=== PATIENT | female | born 1955 | race Caucasian/White ===

== ENCOUNTER 2020-01-16 15:03 | Observation (INO) | payer OTHER ==
[2020-01-16] MEDS ORDERED: Acetaminophen 325 MG TAB PO PRN (16:36)
[2020-01-16] MEDS ORDERED: Acetaminophen 650 MG Suppository PR PRN (16:36)
[2020-01-16] MEDS ORDERED: Nitroglycerin 0.4 MG TAB (25 Tab Bottle) SL PRN (16:38)
[2020-01-16 18:05] VITALS: BMI 27.1
[2020-01-16] MEDS: Famotidine 20 MG TAB PO SCH (20:26)
[2020-01-17 05:08] LABS: #Basophils 0.1 thou/uL (0.0-0.2); #Eosinphils 0.1 thou/uL (0.0-0.7); #Monocytes 0.4 thou/uL (0.11-0.59); #Neutrophils 3.9 thou/uL (1.40-6.50); %Eosinophils 2.3 % (0.0-10.0); %Lymphocytes 31.2 % (21.0-51.0); %Neutrophils 59.5 % (42.0-75.0); Hemoglobin 14.9 g/dL (12.0-16.0); Mean Corpuscular HGB CONC 35.4 g/dL (32.0-36.0); Mean Corpuscular Hemoglobin 34.3 pg (27.0-31.0); Mean Corpuscular Volume 96.8 fL (78.0-98.0); Mean Platelet Volume 8.1 fL (7.4-10.4); Platelet Count 225 thou/uL (130-400); RBC Distribution Width 11.3 % (11.5-14.5); Red Blood Cell (RBC) Count 4.35 mill/uL (4.20-5.40); White Blood Cell (WBC) Count 6.5 thou/uL (4.8-10.8)
[2020-01-17 05:26] LABS: Anion Gap 13 mmol/L (10-20); BUN (Urea Nitrogen) 14 mg/dL (9.8-20.1); Calc. Creatinine Clearance 101 mL/min (70-130); Calcium 8.4 mg/dL (7.8-10.44); Carbon Dioxide 21 mmol/L (23-31); Chloride 106 mmol/L (98-107); Estimated GFR-MDRD Greater than 90; Glucose 98 mg/dL (80-115); Potassium 3.7 mmol/L (3.5-5.1); Sodium 136 mmol/L (136-145)
[2020-01-17] MEDS ORDERED: ESTRADIOL 0.05 MG I-DERMAL SCH (07:30)
[2020-01-17] MEDS ORDERED: Aspirin 81 mg Enteric Coated Tablet PO SCH (09:00)
--- NOTE | 2020-01-17 11:11 | PDOC.HHP ---
Hospitalist HPI - History of Present Illness Chest pain History of Present Illness: Ms. Doherty presents complaining of pain in her chest that started shortly after she was working outside with her . She states the pain came on both sides of her ribcage, more prominent on the left, and wrapped around towards the center of her chest. She best describes it as a band-like pain/sensation that was severe 9/10 lasting approximately 15 minutes. States she has felt pain like this almost two weeks ago which was not as intense. Denies any associated breathlessness. States the pain eased on its own and fully subsided shortly after. Denies any radiating pain to her neck, jaw, shoulders, but states she has chronic left shoulder pain that remain unchanged. She is waiting for a left shoulder surgery. Her expresses concern over her having the flu shot on Saturday and states she has been feeling "not right" since then but unable to pin point symptoms. She denies any fevers, chills, sweats. No cough. Thinks she may have felt some generalized muscle or joint aches. He states she looked like she might pass out. Patient denies any lightheadedness or dizziness. They both called a friend who is a medical provider and advised them to come to the ED to have further assessment/workup. ROS: She denies any cough or hemoptysis. No calf tendernes or swelling. No trauma or injury to her chest. No falls. No n/v or abdominal pain. No urinary symptoms. She has a good appetite. No changes with her bowels. All other review of systems apart from those mentioned above in HPI are negative. ED COURSE: She was first seen at [place] [facility] where she was given 162 mg of Aspirin since she had taken 2 baby aspirin at home. She had an EKG done that showed sinus tachycardia, HR of 112. No ST changes or T wave abnormalities. Given 162 mg of Aspirin. CXR done and unremarkable. D-dimer was negative and initial troponin negative as well PAST MEDICAL HISTORY: Hypothyroidism. Left chronic shoulder pain. PAST SURGICAL HISTORY: x 2 Tonsillectomy. FAMILY HISTORY: Her brother had an SC in his 40s. SOCIAL HISTORY: She is fully independent lives with her . Paula any tobacco use. Reports drinking 2 glasses of "bonnie and coke" 4-5 nights a week. No history of binge drinking. Denies any withdrawal symptoms when she doesnt drink. ALLERGIES: PENICILLIN CURRENT MEDICATIONS: [place] thyroid 120 mg daily. Hospitalist ROS - Medication Medications: Active Medications Generic Name Dose Route Start Last Admin Trade Name Laura PRN Reason Stop Dose Admin Famotidine 20 mg 01/16/20 21:00 01/16/20 20:26 Famotidine 20 Mg Tab PO 20 mg BID BULL Administration - Exam General Appearance: NAD, awake alert General - other findings: Temp 98.7, HR 90, BP 138/90, RR 18, O2 sat 97% on RA Eye: PERRL, anicteric sclera ENT: normocephalic atraumatic, no oropharyngeal lesions, moist mucosa Neck: supple, symmetric, no JVD, no lymphadenopathy Heart: RRR, no murmur, normal peripheral pulses Heart - other findings: no reproducile pain with palpation/movement Respiratory: CTAB, no wheezes, no rales, no ronchi, normal chest expansion Gastrointestinal: soft, non-tender, non-distended, normal bowel sounds, no palpable masses, no guarding, no rigidity Extremities: no edema Extremities - other findings: no calf tenderness Skin: normal turgor, no lesions, no rashes Neurological: cranial nerve grossly intact, normal sensation to touch, no w eakness, no focal deficits Musculoskeletal: normal tone, normal strength, no muscle wasting Psychiatric: normal affect, normal behavior, A&O x 3 Hospitalist Results - Labs Result Diagrams: 01/17/20 04:45 01/17/20 04:45 Lab results: WBC 6.5 thou/uL (4.8-10.8) 01/17/20 04:45 Hgb 14.9 g/dL (12.0-16.0) 01/17/20 04:45 Hct 42.1 % (36.0-47.0) 01/17/20 04:45 MCV 96.8 fL (78.0-98.0) 01/17/20 04:45 Plt Count 225 thou/uL (130-400) 01/17/20 04:45 Neutrophils % 59.5 % (42.0-75.0) 01/17/20 04:45 Sodium 136 mmol/L (136-145) 01/17/20 04:45 Potassium 3.7 mmol/L (3.5-5.1) 01/17/20 04:45 Chloride 106 mmol/L (98-107) 01/17/20 04:45 Carbon Dioxide 21 mmol/L (23-31) L 01/17/20 04:45 BUN 14 mg/dL (9.8-20.1) 01/17/20 04:45 Creatinine 0.63 mg/dL (0.6-1.1) 01/17/20 04:45 Glucose 98 mg/dL (80-115) 01/17/20 04:45 Calcium 8.4 mg/dL (7.8-10.44) 01/17/20 04:45 Troponin I Less than 0.010 ng/mL (< 0.028) 01/16/20 22:49 - Radiology Interpretation Chest x-ray Status: report reviewed by me Hospitalist H&P A/P - Problem (1) Chest pain Code(s): R07.9 - CHEST PAIN, UNSPECIFIED Status: Acute Assessment and Plan: Has fully resolved and remains pain free since arriving to ED in [place]. Continue cardiac monitoring. Continue to trend troponins. If 2nd troponin negative, will resume diet. Will keep NPO with plans for stress test in the morning. She would benefit from Echo as outpatient if stress test normal. Check TSH, Mg+, BNP and AM Lipid panel. Continue aspirin. (2) Hypothyroidism Code(s): E03.9 - HYPOTHYROIDISM, UNSPECIFIED Status: Chronic Assessment and Plan: Resume home medication once verified. Awaiting TSH. (3) Chronic left shoulder pain Code(s): M25.512 - PAIN IN LEFT SHOULDER; G89.29 - OTHER CHRONIC PAIN Status: Chronic Assessment and Plan: PRN Tylenol for shoulder pain. (4) Family history of SC (myocardial infarction) Code(s): Z82.49 - FAMILY HX OF ISCHEM HEART DIS AND OTH DIS OF THE CIRC SYS Status: Chronic Assessment and Plan: Her brother had an SC in his 40s. Cardiac work-up as mentioned above. - Plan Plan: Above case discussed with Dr. Rios who agrees with plan as above.
[2020-01-17 11:20] VITALS: BP 135/69; TEMP 98
--- NOTE | 2020-01-17 11:52 | NM ---
EXAM: NM Cardiac Stress W EF WF PROVIDED CLINICAL HISTORY: Chest pain COMPARISON: None FINDINGS: This examination is performed as a logic myocardial perfusion stress test after the administration of adenosine. No significant reversible defect is seen between the stress and resting acquisitions. Quantitative an alysis also shows no significant reversible defect. Gated images demonstrate normal ventricular wall motion and wall thickening. Calculated left ventricular ejection fraction is 74%. There is mild elevation in transient ischemic dilatation ratio which is 1.26 with upper normal being 1.22. IMPRESSION: 1. No significant reversible defect seen to suggest ischemia. 2. LVEF of 74%. 3. Mild elevation transient ischemic dilatation ratio which is 1.26.
[2020-01-17] MEDS: Famotidine 20 MG TAB PO SCH (11:55)
[2020-01-17] MEDS ORDERED: ADENOSINE 60 MG/20 ML VIAL ONE (12:37)
[2020-01-17] MEDS ORDERED: Non-Formulary Item 1 EACH (Progesterone, Micronized [Progesterone] 200 MG Capsule) PO SCH (21:00)
[2020-01-17] MEDS ORDERED: Progesterone,Micronized 100 MG CAP PO SCH (21:00)
--- NOTE | 2020-01-18 03:26 | DIS ---
DATE OF ADMISSION: 01/16/2020 DATE OF DISCHARGE: 01/17/2020 PRIMARY CARE PROVIDER: Unknown. DISCHARGE DIAGNOSES: 1. Chest pain. 2. Chest pain, most likely secondary to musculoskeletal etiology. 3. Low TSH. CONDITION OF PATIENT ON THE DAY OF DISCHARGE: Stable. I assessed Ms. Doherty on the day of discharge. She denies any chest pain or shortness of breath. Vital signs are stable. HOSPITAL COURSE: Ms. Doherty is a pleasant 64-year-old lady, who was admitted to [facility] on January 16, 2020, for chest pain. Pulmonary embolism was ruled out with negative D-dimer. She had a nuclear stress test, which did not show any significant reversible defect to suggest ischemia. Left ventricular ejection fraction was 74%. She had mild elevation of transient ischemic dilatation ratio, 1.26. Her TSH was low at 0.0149. Patient has been notified of this result and she told me she will follow up with her physician for management of her thyroid medications. Many thanks for allowing me to participate in your patient's care. Please feel free to contact me with any questions or concerns. DIET: Heart-healthy. ACTIVITY: As tolerated. DISCHARGE DESTINATION: Home. Job ID: [id number]
[2020-01-19] MEDS ORDERED: Estradiol 0.05mg/24 Hour Patch (Weekly) TD SCH (09:00)
== END 2020-01-17 12:58 | disposition home or self-care (01) ==
LOC: 2SE 15:03
PROVIDERS: ADMIT Internal Medicine; ATTEND Internal Medicine
DX: R07.9 Chest pain, unspecified (principal); E03.9 Hypothyroidism, unspecified; G89.29 Other chronic pain; M25.512 Pain in left shoulder; Z79.899 Other long term (current) drug therapy; Z82.49 Family history of ischemic heart disease and other diseases of the circulatory system; Z88.0 Allergy status to penicillin
CPT/HCPCS: 36415; 78452; 80048; 83735; 84443; 85025; 85379; 93017; A9500; G0378; J0153